=== PATIENT | female | born 1950 | race Caucasian/White ===

== ENCOUNTER 2016-09-15 02:17 | Inpatient (IN) ==
--- NOTE | 2016-09-09 13:02 | EKG Report ---
Test Performed on : 09/09/2016 12:50:47 PM Test Reason : PAT Blood Pressure : / mmHG Vent. Rate : 079 BPM Atrial Rate : 079 BPM P-R Int : 136 ms QRS Dur : 088 ms QT Int : 392 ms P-R-T Axes : 055 025 057 degrees QTc Int : 449 ms Normal sinus rhythm. Nonspecific ST and T wave abnormality Abnormal ECG No previous ECGs available Confirmed by Madhav GR, Mark Hatch ([id number]) on 09/10/2016 5:49:12 PM
[2016-09-09 13:16] LABS: MANUAL DIFF NEEDED? NO
[2016-09-09 13:20] LABS: BASO% 0.4 % (0.0-0.8); EOS# 0.14 X1000 (0.0-0.7); EOS% 1.8 % (0.0-10.0); HEMATOCRIT 41.8 % (37.0-47.0); HEMOGLOBIN 13.9 g/dL (12.0-16.0); LYMPH# 2.55 X1000 (1.2-3.4); LYMPH% 32.7 % (20.5-51.1); MCH 25.4 PG (27-31); MCHC 33.3 g/dL (33-37); MCV 76.4 FL (81-99); MONO# 0.54 X1000 (0.11-0.59); MONO% 6.9 % (1.7-9.3); MPV 9.7 FL (7.4-10.4); NEUT% 58.2 % (42.2-75.2); PLT 305 X1000 (130-400); RBC 5.47 XMIL (4.2-5.4)
[2016-09-09 13:30] LABS: INR 0.97; PROTIME 10.2 Seconds (9.2-11.7); PTT 25.3 Seconds (22.0-36.0)
[2016-09-09 13:37] LABS: AGAP 13; BUN 12 mg/dL (8-22); CALCIUM 9.6 mg/dL (8.8-10.2); CHLORIDE 101 mmol/L (98-107); COSMO 282; POTASSIUM 3.9 mmol/L (3.5-5.1); SODIUM 140 mmol/L (136-145); TCO2 26 mmol/L (25-35)
[2016-09-14 11:08] LABS: URINE MICRO REVIEW NEEDED? NO; URINE SOURCE CLEAN CATCH
[2016-09-14 11:34] LABS: BILIRUBIN URINE NEGATIVE (NEGATIVE); BLOOD URINE NEGATIVE (NEGATIVE); COLOR YELLOW; GLUCOSE URINE NEGATIVE (NEGATIVE); LEUKOCYTES URINE NEGATIVE (NEGATIVE); NITRITE URINE POSITIVE (NEGATIVE); PH URINE 5.5; PROTEIN URINE NEGATIVE (NEGATIVE); SP GRAVITY URINE 1.014; TURBIDITY URINE CLEAR (CLEAR); UROBILINOGEN URINE NORMAL (NORMAL)
[2016-09-14 11:35] LABS: UR EPITHELIAL CELLS <10 /HPF (<10); URINE BACTERIA 4+ /HPF; URINE RBC <10 /HPF (<10); URINE WBC <10 /HPF (<10)
[2016-09-15] MEDS ORDERED: DEMEROL IV PRN (06:59)
[2016-09-15] MEDS ORDERED: PEPCID ONE (08:37)
[2016-09-15] MEDS ORDERED: LYRICA ONE (08:37)
[2016-09-15] MEDS ORDERED: REGLAN ONE (08:37)
[2016-09-15] MEDS ORDERED: KEFZOL 2 GM/D5W 2 GM/50 ML IVPB ONE (08:38)
[2016-09-15] MEDS ORDERED: LR 1,000 ML ONE ×2 (08:38→13:02)
[2016-09-15] MEDS ORDERED: LOPRESSOR PO SCH (09:00)
[2016-09-15] MEDS: CELEBREX PO SCH (09:00)
[2016-09-15] MEDS: COLACE PO SCH (09:00)
--- NOTE | 2016-09-15 09:26 | HISTORY AND PHYSICAL ---
CHIEF COMPLAINT: Left knee pain. HISTORY OF PRESENT ILLNESS: Ms. Santamaria is a 66-year-old, white female with a history of left knee pain, she states for 10-15 years, and she has progressively gotten worse. Radiographic images of her left knee reveal images consistent with advanced degenerative joint disease. She is being admitted today to the hospital for a left total knee arthroplasty. PAST MEDICAL HISTORY: Hypertension, obstructive sleep apnea, diabetes mellitus, hyperlipidemia, and morbid obesity. PAST SURGICAL HISTORY: Hysterectomy, bilateral mastectomy, gallbladder surgery, ERCP. FAMILY HISTORY: Noncontributory. SOCIAL HISTORY: She is . Denies using tobacco, denies using alcohol. HOME MEDICATIONS: Norvasc 10 mg p.o. daily, metoprolol 25 mg p.o. daily, vitamin D3 400 units p.o. daily, Mavik 4 mg p.o. daily, metformin 2 tablets p.o. b.i.d. ALLERGIES: Hydrocodone, tape, and Neosporin, bacitracin, zinc, neomycin sulfate. PRIMARY CARE PROVIDER: Dr. Rosado. REVIEW OF SYSTEMS: HEENT: The patient reports having glasses. Denies any dentures. Denies any hearing aids, any ears, nose, or throat problems. Cardiac: Patient denies any cardiac history. Denies any syncope. Denies any chest pain or shortness of breath. Pulmonary: Patient denies any wheezing, coughing, or hemoptysis. Gastrointestinal: Patient denies any constipation. Reports having diarrhea occasionally. Genitourinary: Patient reports having a UTI and currently on urinary tract antibiotics. Neurological: Patient denies any neurological deficits. Reports good sensation in all extremities. Musculoskeletal: Patient reports having left knee pain. PHYSICAL EXAMINATION: GENERAL: Patient is awake, in bed. Oriented to person, place, and time. She is able to answer questions appropriately. HEENT: Head is normocephalic, atraumatic. Pupils equal, round, react to light. Nares patent. Throat without exudate. CARDIAC: S1-S2 auscultated. No murmur, rub, or gallop noted. LUNGS: Clear to auscultation bilaterally in all lung [place]. GASTROINTESTINAL: Abdomen is soft, nontender, nondistended. Bowel sounds present in all quadrants. GENITOURINARY: Not examined. NEUROLOGICAL: Patient has good sensation to dull touch in all extremities. Cranial nerves 2-12 grossly intact. MUSCULOSKELETAL: Physical examination of the left knee reveals pain with passive range of motion. IMPRESSION: Osteoarthritis of the left knee. PLAN: Left total knee arthroplasty. The risks, benefits, and alternatives of the surgery were discussed with the patient including risks of anesthesia, infection, bleeding, damage to blood vessels, nerves, tendons, ligaments, and other imponderables were discussed. The patient agrees to proceed with surgery at this time. Dictated by PATO Pollard for Frank Dugan MD cc: PATO Pollard MD
[2016-09-15] MEDS ORDERED: SODIUM CHLORIDE 0.9% ONE (10:16)
[2016-09-15] MEDS ORDERED: TORADOL ONE (10:16)
[2016-09-15] MEDS ORDERED: CYKLOKAPRON 1,000 MG/NS 1,000 MG/100 ML IVPB ONE ×2 (10:16→10:18)
[2016-09-15] MEDS ORDERED: MARCAINE 0.25% PF/EPI 1:200,000 ONE (10:16)
[2016-09-15] MEDS ORDERED: VANCOMYCIN ONE (10:16)
[2016-09-15] MEDS ORDERED: DURAMORPH ONE (10:16)
[2016-09-15] MEDS ORDERED: CLAVE SECONDARY SET 11953 ONE (10:17)
[2016-09-15] MEDS ORDERED: EXPAREL 1.3% ONE (10:17)
[2016-09-15] MEDS ORDERED: NEOSPORIN G.U. IRRIGANT ONE (10:17)
[2016-09-15 11:16] LABS: URINE MICRO REVIEW NEEDED? NO; URINE SOURCE CATH
[2016-09-15 11:20] LABS: BILIRUBIN URINE NEGATIVE (NEGATIVE); BLOOD URINE NEGATIVE (NEGATIVE); COLOR YELLOW; GLUCOSE URINE NEGATIVE (NEGATIVE); LEUKOCYTES URINE NEGATIVE (NEGATIVE); NITRITE URINE NEGATIVE (NEGATIVE); PROTEIN URINE NEGATIVE (NEGATIVE); TURBIDITY URINE CLEAR (CLEAR); UR EPITHELIAL CELLS <10 /HPF (<10); URINE BACTERIA NEGATIVE /HPF; URINE RBC <10 /HPF (<10); URINE WBC <10 /HPF (<10); UROBILINOGEN URINE NORMAL (NORMAL)
[2016-09-15] MEDS ORDERED: MAVIK PO SCH (12:00)
[2016-09-15] MEDS ORDERED: VERSED ONE (12:32)
[2016-09-15] MEDS ORDERED: FENTANYL ONE (12:32)
[2016-09-15] MEDS ORDERED: DIPRIVAN 1% 500 MG/50 ML BOTTLE ONE (12:33)
--- NOTE | 2016-09-15 12:59 | OPERATIVE NOTE ---
PROCEDURE DATE: 09/15/2016 PREOPERATIVE DIAGNOSIS: Degenerative joint disease, left knee. POSTOPERATIVE DIAGNOSIS: Degenerative joint disease, left knee. PROCEDURE PERFORMED: Left total knee replacement. SURGEON: Sam Dugan MD BOBBIN STRIPPER: PATO Pollard ANESTHESIA: Spinal. COMPLICATIONS: None. PROCEDURE IN DETAIL: This 66-year-old female presents for left knee replacement. Risks, benefits, and no guarantees were discussed, and they are willing to proceed. The patient was taken to the operating room and satisfactory anesthesia obtained. The left leg was prepped and draped in usual sterile fashion. A time-out was taken to confirm operative site, procedure, and patient. The leg was wrapped with an Esmarch tourniquet inflated to 350 mmHg. A midline incision was made over the front of the knee, followed by a quadriceps tendon-sparing arthrotomy. The patella was then everted and resurfaced with freehand technique and sized to a size 35 medialized dome patella. The patella was subluxed laterally and the knee flexed. An intramedullary hole was made in the distal femur. A distal femoral cutting block was secured in 5 degrees of valgus. An additional 2 mm was taken for a 15-degree flexion contracture of the knee. The distal femur was resected and then sized to a size 5 DePuy Attune femoral component. The 4-in-1 block was secured and the anterior, posterior, and chamfer cuts sequentially made. A notch was created for the posterior stabilized design using the provided notch guide and any remaining osteophytes removed from the femur. Afterwards, the knee was flexed and a PCL retractor placed behind the tibia to protect the neurovascular bundle. The tibial cutting block was secured with an extramedullary alignment system. Tibial resection was made and flexion and extension gaps noted to be roughly equal. The medial joint was tight, however, and a medial release of the MCL performed with good soft tissue balance. Any osteophytes were debrided about the tibia at that point. The tibia was sized to a size 4 tibial tray. Trial reduction was then performed with varying thickness poly with the best stability with a 14 mm thick poly. The trial implants were removed and the bony surfaces thoroughly irrigated with pulsatile lavage. Cement with a gram of vancomycin was then utilized to cement a DePuy Attune size 4 rotating platform tibial baseplate, a size 5 narrow left posterior stabilized femoral component, and a 35 medialized dome patella. While the cement cured, the joint capsule was injected with Exparel and a Hemovac drain placed. After curing of the cement, a 14 mm size 5 poly was placed into the tibial component and the knee reduced. Final range of motion revealed midline patellar tracking with excellent soft tissue balance. The wound was then copiously irrigated with irrigant and closed in layers with #1 Vicryl in the arthrotomy, 2-0 Vicryl in the subcu, and skin louann on the skin edges. She was then recovered from anesthesia and tourniquet released with good return of capillary blood flow. She was transferred to the recovery room in stable condition. No intraoperative complications were noted. Instrument and sponge counts were correct at the time of closure. cc: Frank Dugan MD
[2016-09-15] MEDS: NS 1,000 ML IV SCH (13:00)
[2016-09-15] MEDS ORDERED: OFIRMEV 1000 MG/ISOTONIC SOLN 1,000 MG/100 ML BOTTLE ONE (13:02)
[2016-09-15] MEDS ORDERED: ROBINUL ONE (13:02)
[2016-09-15] MEDS ORDERED: XYLOCAINE-MPF 2% ONE (13:02)
[2016-09-15] MEDS ORDERED: DECADRON ONE (13:02)
[2016-09-15] MEDS ORDERED: ZOFRAN ONE (13:02)
[2016-09-15] MEDS ORDERED: NS 1,000 ML ONE (13:13)
--- NOTE | 2016-09-15 13:34 | Diag Imaging Result Document ---
PROCEDURE NAME: KNEE 1-2 VIEWS-LEFT - 09/15/2016 LEFT KNEE, 2 VIEWS: FINDINGS: There is a total knee arthroplasty. There appears to be appropriate alignment. IMPRESSION: Postsurgical changes.
[2016-09-15] MEDS: PERCOCET-10 PO PRN ×2 (16:45→21:32)
[2016-09-15] MEDS: GLUCOPHAGE PO SCH (16:45)
[2016-09-15] MEDS: KEFZOL 1 GM/D5W 1 GM/50 ML IVPB IV SCH (17:24)
[2016-09-15] MEDS: VITAMIN D PO SCH (17:35)
[2016-09-15] MEDS: NORVASC PO SCH (17:35)
[2016-09-15] MEDS: PERIDEX MT SCH (20:38)
[2016-09-15] MEDS: LOPRESSOR PO SCH (20:38)
[2016-09-16] MEDS: COLACE PO SCH ×3 (01:45→22:55)
[2016-09-16] MEDS: KEFZOL 1 GM/D5W 1 GM/50 ML IVPB IV SCH (02:25)
[2016-09-16] MEDS: PERCOCET-10 PO PRN ×4 (03:19→22:55)
[2016-09-16 05:56] LABS: HEMATOCRIT 36.8 % (37.0-47.0); HEMOGLOBIN 11.8 g/dL (12.0-16.0)
[2016-09-16 06:18] LABS: AGAP 15; BUN 12 mg/dL (8-22); CALCIUM 8.9 mg/dL (8.8-10.2); CHLORIDE 103 mmol/L (98-107); COSMO 283; POTASSIUM 4.1 mmol/L (3.5-5.1); SODIUM 139 mmol/L (136-145); TCO2 21 mmol/L (25-35)
[2016-09-16] MEDS: XARELTO PO SCH (06:45)
[2016-09-16] MEDS: MAVIK PO SCH (09:03)
[2016-09-16] MEDS: CELEBREX PO SCH (09:04)
[2016-09-16] MEDS: VITAMIN D PO SCH (09:04)
[2016-09-16] MEDS: LOPRESSOR PO SCH ×2 (09:04→22:55)
[2016-09-16] MEDS: NORVASC PO SCH (09:06)
[2016-09-16] MEDS: GLUCOPHAGE PO SCH ×2 (09:06→17:44)
[2016-09-16] MEDS: PERIDEX MT SCH ×2 (09:06→22:55)
[2016-09-16] MEDS ORDERED: SODIUM CHLORIDE 0.9% INJ PRN (10:03)
[2016-09-16] MEDS ORDERED: PHENERGAN IV PRN (10:03)
[2016-09-16] MEDS: NS 1,000 ML IV SCH (18:11)
[2016-09-16] MEDS ORDERED: ZOFRAN IV PRN (22:56)
[2016-09-17] MEDS: PERCOCET-10 PO PRN ×2 (03:57→14:22)
[2016-09-17 06:01] LABS: HEMATOCRIT 34.7 % (37.0-47.0); HEMOGLOBIN 10.9 g/dL (12.0-16.0)
[2016-09-17] MEDS: XARELTO PO SCH (07:41)
[2016-09-17] MEDS: LOPRESSOR PO SCH (09:36)
[2016-09-17] MEDS: VITAMIN D PO SCH (09:36)
[2016-09-17] MEDS: CELEBREX PO SCH (09:36)
[2016-09-17] MEDS: PERIDEX MT SCH (09:36)
[2016-09-17] MEDS: MAVIK PO SCH (09:37)
[2016-09-17] MEDS: COLACE PO SCH (09:37)
[2016-09-17] MEDS: GLUCOPHAGE PO SCH (09:37)
[2016-09-17] MEDS: NORVASC PO SCH (09:37)
--- NOTE | 2016-09-17 10:55 | DISCHARGE SUMMARY ---
ADMISSION DATE: 09/15/2016 DISCHARGE DATE: 09/17/2016 ADMITTING DIAGNOSIS: Degenerative joint disease, left knee. ADDITIONAL DIAGNOSES: 1. Hypertension. 2. Obstructive sleep apnea. 3. Diabetes mellitus. 4. Hyperlipidemia. 5. Morbid obesity. DISCHARGE DIAGNOSES: 1. Degenerative joint disease, left knee. 2. Hypertension. 3. Obstructive sleep apnea. 4. Diabetes mellitus. 5. Hyperlipidemia. 6. Morbid obesity. ADMITTING HISTORY AND HOSPITAL COURSE: Ms. Santamaria is a 66-year-old female, who was found to have advanced degenerative joint disease in her left knee. She was admitted to the hospital for a left total knee arthroplasty. After her surgery, she remained afebrile. Her vital signs remained stable. She had some difficulty early on with lethargy and difficulty working with physical therapy, but she has improved. Now we plan to discharge her home today after her second session of physical therapy. She will begin home health physical therapy after discharge. Of note, the incision looks great. Dressing is dry and intact. There is no drainage. There are no signs or symptoms of infection or DVT. Her hematocrit today is 34.7. DISCHARGE MEDICATIONS: 1. Norvasc 10 mg p.o. daily. 2. Metoprolol 25 mg p.o. daily. 3. Cholecalciferol 400 units p.o. daily. 4. Trandolapril 4 mg p.o. daily. 5. Metformin 1000 mg p.o. b.i.d. 6. Xarelto 10 mg p.o. daily for 14 days. 7. Percocet 10 1-2 p.o. q. 4-6 hours p.r.n. for pain. DISCHARGE INSTRUCTIONS: Ms. Santamaria is to discharge home today where she will begin a home physical therapy regimen. I have discussed with her if she has any worsening signs or symptoms to call us. If she has any drainage or any fever or any problems at all, to call us at the office immediately. She will need to follow up with Dr. Dugan in about 10 days to have her louann removed and followup appointment. Dictated by PATO Pollard for Frank Dugan MD cc: PATO Pollard MD
[2016-09-17 12:27] VITALS: BP 148/59
== END 2016-09-17 15:05 | disposition home health service (06) ==
LOC: SURHOLD 02:17 → 4N 10:44
PROVIDERS: ADMIT Orthopaedic Surgery Adult Reconstructive Orthopaedic Surgery; ATTEND Orthopaedic Surgery Adult Reconstructive Orthopaedic Surgery